=== PATIENT | female | born 1975 | race Caucasian/White ===

== ENCOUNTER 2019-07-27 09:51 | Inpatient (IN) | payer OTHER ==
[~2019-07-27] VITALS: Ht 162.6 cm; Wt 111.1 kg
[2019-07-27 10:39] VITALS: BP 194/104
[2019-07-27] MEDS ORDERED: SYMBICORT160 MCG/4. INH (10:51)
[2019-07-27] MEDS ORDERED: PROAIR HFA8.5 GM INH (10:51)
[2019-07-27 11:25] LABS: ABSOLUTE NEUTROPHILS 8.5 thou/uL (1.4-8.2); BASOPHILS 1.1 % (0.0-2.0); EOSINOPHILS 0.6 % (0.0-3.0); HEMATOCRIT 38.4 % (37.0-47.0); HEMOGLOBIN 12.7 gm/dL (12.0-15.0); LYMPHOCYTES 23.1 % (24.0-44.0); MCH 28.8 pg (26.0-34.0); MCHC 33.1 g/dL (28.0-37.0); MCV 87.2 fL (80.0-100.0); MONOCYTES 4.5 % (1.0-8.0); PLATELET COUNT 498 thou/uL (150-400); POLYS 70.7 % (36.0-66.0); RBC 4.41 mil/uL (4.20-5.00)
[2019-07-27 11:36] LABS: CREATININE 0.8 mg/dL (0.6-1.0); MAGNESIUM 1.8 mg/dL (1.8-2.4); POTASSIUM 3.7 mmol/L (3.5-5.1); PROTIME 9.8 Seconds (9.3-11.4)
--- NOTE | 2019-07-27 16:17 | EKG ---
[facility] [place] [address] ELECTROCARDIOGRAM REPORT Name: JOHNNA WOOD Room #: 170-10 ADM IN M.R.#: [id number] Admission: 07/27/19 Attend Phys: Rafael Clark MD Discharge: Date of : 77 Report #: [id number] THIS REPORT FOR: cc: Sheron Castaneda MD, Melanie MD Couchonnal,Espinoza Taveras MD ~ THIS REPORT FOR: //name// [facility] ED Test Date: 2019-07-27 Test Time: 10:01:52 Pat Name: JOHNNA WOOD Department: Room: [facility] Gender: F Safety Tech: SULLY : 1975 Requested By: Rita Vanegas Order Number: [id number] MD: Espinoza Wheeler Measurements Intervals [place] Rate: 96 P: 40 MD: 144 QRS: -4 QRSD: 91 T: 66 QT: 359 QTc: 454 Interpretive Statements Sinus rhythm Probable left atrial enlargement Abnormal R-wave progression, early transition No previous ECG available for comparison Electronically Signed On 07-27-2019 16:16:28 BAG BLEACHER by Espinoza Wheeler [email or web address] <ELECTRONICALLY SIGNED> By: Espinoza Wheeler MD 07/27/19 1616 100 1001 Espinoza Wheeler MD /EPI
[2019-07-27 16:43] VITALS: BP 171/84
[2019-07-27 17:05] VITALS: BP 138/73
[2019-07-27 17:50] VITALS: BP 141/85
--- NOTE | 2019-07-27 18:33 | NUR ---
Pt admitted to 354, pt alert and oriented X4, complains of right rib pain with any activity. rates pain 8/10, sharp, stabbing. pt oriented to room, fall consent signed. Assessment and admission completed.Pt has her purse with her, educated on giving Call light in reach, bed at lowest level with alarm on.
[2019-07-27 19:30] VITALS: BP 167/100
[2019-07-28 04:10] VITALS: BP 116/72
[2019-07-28 05:04] LABS: ABSOLUTE NEUTROPHILS 10.4 thou/uL (1.4-8.2); BASOPHILS 0.2 % (0.0-2.0); HEMATOCRIT 35.9 % (37.0-47.0); HEMOGLOBIN 11.6 gm/dL (12.0-15.0); LYMPHOCYTES 10.3 % (24.0-44.0); MCH 28.4 pg (26.0-34.0); MCHC 32.2 g/dL (28.0-37.0); MCV 88.2 fL (80.0-100.0); PLATELET COUNT 463 thou/uL (150-400); POLYS 88.5 % (36.0-66.0); RBC 4.07 mil/uL (4.20-5.00); RDW 14.3 % (10.5-14.5); WBC 11.7 thou/uL (4.0-11.0)
[2019-07-28 05:34] LABS: CALCIUM 8.4 mg/dL (8.5-10.1); CREATININE 0.9 mg/dL (0.6-1.0); POTASSIUM 4.1 mmol/L (3.5-5.1)
[2019-07-28 07:53] VITALS: BP 136/91
--- NOTE | 2019-07-28 07:56 | NUR ---
PT MAKING SLOW PROGRESS TOWARDS GOALS. X3 DOSES OF MORPHINE GIVEN FOR RIGHT UPPER CHEST PAIN. X2 DOSES GIVEN FOR PT REPORTS OF NAUSEA WITH ELEVATED PAIN LEVEL AND MORPHINE DOSING. PT REPORTING MODERATE RELIEF WITH MORPHINE. SEE CHARTING.
[2019-07-28 15:25] VITALS: BP 143/95
--- NOTE | 2019-07-28 15:35 | NUR ---
ASSUMED CARE OF PT AT 0700. PT AOX4 TEARFUL AT TIMES DUE TO PAIN. SCHEDULED HYDROCODONE ADDED TO MORPHINE PRN. NOW COMPLAINING OF RIGHT UPPER BACK PAIN - PHYSICIAN AWARE. WILL CONT TO MONITOR.
--- NOTE | 2019-07-28 15:42 | NUR ---
met with patient who admits with PNA. She is independent with adls and self care. 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 She lives in one level home, has insurance and PCP. Patient anticipates no needs from casemgt at in. cont to follow
[2019-07-28 19:24] VITALS: BP 134/87
[2019-07-29 05:20] VITALS: BP 127/79
[2019-07-29 07:31] VITALS: BP 152/97
--- NOTE | 2019-07-29 09:03 | NUR ---
PT MAKING SLOW PROGRESS TOWARDS GOALS. RATING PAIN IN HER RIGHT UPPER CHEST 7-9/10 THROUGHOUT THE NIGHT. X3 DOSES OF IV MORPHINE AND ORAL LORTAB PER ORDERS. SEE CHARTING.
--- NOTE | 2019-07-29 14:14 | NUR ---
CHART REVIEWED. SPOKE TO Pt AND HER NURSE WHO STATE THAT Pt IS GETTING AROUND WELL AND DOES NOT NEED ANY P.T. PRIOR TO D/C. INFORMED BOTH TO CONTACT P.T. IF ANYTHING CHANGES AND P.T. IS NEEDED DURING THIS STAY.
[2019-07-29 15:13] VITALS: BP 134/83
--- NOTE | 2019-07-29 16:15 | NUR ---
Assumed care approx. 0700 this AM. New 20 guage IV was placed by IV team this AM. Pt taken for CT scan this morning. Pain hasn't been well controlled-still complains of non-cardiac pain in the upper right chest region. Non-productive cough present. IV abx infusing per orders. No acute changes noted. Pts kids at bedside to visit. Will continue to monitor. Pt hasn't progressed much yet toward plan of care goals as pain is uncontrolled.
[2019-07-29 19:17] VITALS: BP 119/72
[2019-07-30 07:36] VITALS: BP 149/89
[2019-07-30] MEDS ORDERED: NORCO 5-325 TA1 EAC1 PO (11:23)
[2019-07-30] MEDS ORDERED: LIDOPATCH1 EACH TRANSDERM (11:23)
[2019-07-30] MEDS ORDERED: PREDNISONE 20 M20 M1 PO (11:23)
[2019-07-30] MEDS ORDERED: CEFUROXIME500 MG PO (11:23)
[2019-07-30] MEDS ORDERED: ALPRAZOLAM 0.50.5 M1 PO (11:23)
[2019-07-30] MEDS ORDERED: ZITHROMAX500 MG PO (11:23)
[2019-07-30] MEDS ORDERED: CYMBALTA30 MG PO (11:23)
[2019-07-30 11:40] VITALS: BP 149/89
== END 2019-07-30 13:52 | disposition home or self-care (01) | DRG 205 ==
LOC: ER 09:51 → 3W 14:37 → EROBS 14:37 → 3W 17:18
PROVIDERS: Emergency Medicine Emergency Medical Services; Nurse Practitioner; ADMIT Internal Medicine
DX: S22.31XA Fracture of one rib, right side, initial encounter for closed fracture (principal); J18.9 Pneumonia, unspecified organism; J45.901 Unspecified asthma with (acute) exacerbation; J98.11 Atelectasis; S27.321A Contusion of lung, unilateral, initial encounter; Z68.41 Body mass index [BMI] 40.0-44.9, adult; Z68.42 Body mass index [BMI] 45.0-49.9, adult; I16.0 Hypertensive urgency; F17.210 Nicotine dependence, cigarettes, uncomplicated; E66.01 Morbid (severe) obesity due to excess calories; F41.1 Generalized anxiety disorder; F32.9 Major depressive disorder, single episode, unspecified; X58.XXXA Exposure to other specified factors, initial encounter; Z79.899 Other long term (current) drug therapy; Z79.51 Long term (current) use of inhaled steroids; Z87.440 Personal history of urinary (tract) infections; Y93.89 Activity, other specified; Y92.89 Other specified places as the place of occurrence of the external cause; Y99.8 Other external cause status
CPT/HCPCS: 10879

== ENCOUNTER 2019-08-07 15:51 | Emergency (ER) | payer OTHER ==
[~2019-08-07] VITALS: Ht 162.6 cm; Wt 108.9 kg
[~2019-08-07 15:51] MED LIST: ALPRAZOLAM 0.50.5 M1 PO; CEFUROXIME500 MG PO; CYMBALTA30 MG PO; LIDOPATCH1 EACH TRANSDERM; NORCO 5-325 TA1 EAC1 PO; PREDNISONE 20 M20 M1 PO; PROAIR HFA8.5 GM INH; SYMBICORT160 MCG/4. INH; ZITHROMAX500 MG PO
[2019-08-07] MEDS ORDERED: PERCOCET 5-3251 EACH PO ×2 (16:17→19:40)
[2019-08-07] MEDS ORDERED: ATIVAN0.5 M1 PO (16:18)
[2019-08-07 17:18] LABS: HEMATOCRIT 34.4 % (37.0-47.0); HEMOGLOBIN 11.1 gm/dL (12.0-15.0); MCH 28.2 pg (26.0-34.0); MCHC 32.1 g/dL (28.0-37.0); MCV 87.8 fL (80.0-100.0); PLATELET COUNT 523 thou/uL (150-400); RBC 3.92 mil/uL (4.20-5.00); RDW 14.2 % (10.5-14.5); WBC 18.1 thou/uL (4.0-11.0)
[2019-08-07 17:25] LABS: CALCIUM 8.8 mg/dL (8.5-10.1); CREATININE 0.7 mg/dL (0.6-1.0); POTASSIUM 4.6 mmol/L (3.5-5.1)
[2019-08-07 18:10] LABS: ALBUMIN 3.1 g/dL (3.4-5.0); SGOT 21 U/L (15-37); SGPT 47 U/L (30-65); TOTAL BILIRUBIN < 0.1 mg/dL (<0.1-1.0); TOTAL PROTEIN 6.8 g/dL (6.4-8.2)
[2019-08-07 18:12] LABS: DIRECT BILIRUBIN < 0.1 mg/dL (<0.1-0.2)
[2019-08-07 18:44] LABS: ABSOLUTE NEUTROPHILS 13.6 thou/uL (1.4-8.2); ANISOCYTOSIS 1+
[2019-08-07 19:38] VITALS: BP 142/79
[2019-08-07] MEDS ORDERED: SENNA-DOCUSATE1 EAC1 PO (19:40)
== END 2019-08-07 19:54 | disposition home or self-care (01) ==
LOC: ER 15:51
PROVIDERS: Nurse Practitioner Family
DX: S29.011A Strain of muscle and tendon of front wall of thorax, initial encounter (principal); J45.909 Unspecified asthma, uncomplicated; F41.9 Anxiety disorder, unspecified; Z90.49 Acquired absence of other specified parts of digestive tract; X58.XXXA Exposure to other specified factors, initial encounter; Y93.89 Activity, other specified; Y92.89 Other specified places as the place of occurrence of the external cause; Y99.8 Other external cause status

== ENCOUNTER → 2019-08-23 | Outpatient (CLI) | payer OTHER ==
[~2019-08-23] VITALS: Ht 162.6 cm; Wt 114.8 kg
[~2019-08-23] MED LIST changes: +ATIVAN0.5 M1 PO; +CLONAZEPAM 0.50.5 M1 PO; +PERCOCET 5-3251 EACH PO; +SENNA-DOCUSATE1 EAC1 PO
[2019-08-23 12:55] VITALS: BP 148/94
--- NOTE | 2019-08-23 13:05 | NUR ---
Pain Clinic Assessment: 1. History of Osteoarthritis: NONE History of Rheumatoid Arthritis: COMMON VARIABLE IMUNE DEFICIENCY 2. Height: 5 ft. 4 in. 162.6 cm. Weight: 253.0 lb. oz. 114.760 kg. Patient's BMI: 43.4 3. Vital Signs: BP: 148/94 Pulse: 102 Resp: 20 Temp: 02 Sat: 98 ECG Mon: 4. Pain Intensity: 10 5. Fall Risk: Dizziness: N Needs help standing or walking: N Fallen in the last 3 months: N Fall risk comments: 6. Patient on Blood Thinner: None 7. History of Hypertension: N 8. Opioid Therapy greater than 6 weeks: Y Opiate Contract Signed: 9. Risk Assessment Tool Provided: LOW 10. Functional Assessment Tool: 68/70 11. Recreational Drug Use: Never Drug Type: Tobacco Use: Current Some Day Smoker Tobacco Type: Cigarettes Amount or Packs/day: How Many Years: Alcohol Use: No Frequency: Quant:
--- NOTE | 2019-08-29 08:15 | HPC ---
[facility] [place] [address] PAIN MANAGEMENT CONSULTATION Name: JOHNNA WOOD Room #: REG [facility] River#: [id number] Admission: 08/23/19 Attend Phys: Jae Sapp DO Discharge: Date of : 77 Report #: [id number] THIS REPORT FOR: cc: Sheron Castaneda MD, Melanie MD Johnson, James E. DO ~ DATE OF SERVICE: 08/23/2019 CHIEF COMPLAINT: Right upper rib pain. HISTORY OF PRESENT ILLNESS: As you know, the patient is a 44-year-old female who reports acute onset of right upper rib pain that began after a cough 07/23/2019. She was seen after this as she did not seem to improve. It was found she had suffered a mildly displaced T2 rib fracture. She apparently was having such discomfort from this issue. She was seen in the hospital and treated medically. She was discharged home after the hospital stay where she had received a fairly significant amount of opioid medication for pain control. She was at home for about a day or two and began to experience some lower abdominal pain located on the right side. The pain became so intense that she took herself back to the Emergency Department on this previous Wednesday where she was evaluated. Ultrasound of the abdomen showed no acute findings. She was subsequently discharged home with further pain medication. The patient reports her pain has become so intense that she was referred to our clinic to discuss options for treatment. She is placing pain score 10/10. She denies any specific injury or trauma that may have led to recurrence of pain. The patient indicates today pain is continuous. She describes the pain as stabbing. She places pain score 10/10, daily average at 10/10, worst pain has been is 10/10. The patient states that moving, breathing, walking, trying to do anything exacerbates symptoms, nothing has improved her pain. She has been referred to our service to discuss treatment options. PAST MEDICAL HISTORY: 1. Asthma. 2. Severe vitamin deficiency. 3. History of shingles. 4. Chronic kidney disease. 5. Hypercalcemia. 6. Renal insufficiency. 7. Dyspnea. 8. COPD. 9. Class 2 morbid obesity. SOCIAL HISTORY: The patient continues to smoke 1 pack of tobacco per week. She [facility] [address] [place] [address] PAIN MANAGEMENT CONSULTATION Name: JOHNNA WOOD Room #: REG [facility]#: [id number] Admission: 08/23/19 Attend Phys: Jae Sapp DO Discharge: Date of : 77 Report #: [id number] denies IV or illicit drug use. Denies any chronic alcohol use. 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 She is not receiving workmen's compensation nor is she trying to obtain disability benefits. She is not involved in any litigation. REVIEW OF SYSTEMS: Positive for weight gain, fever, night sweats, fatigue and weakness, wearing corrective eyewear, hearing loss with tinnitus, nosebleeds, shortness of breath walking or lying flat, spitting up blood, asthma, wheezing, loss of appetite, changes in bowel movements, nausea, vomiting, frequent diarrhea interspersed with severe constipation, abdominal pain, nocturia, changes in hair and nail texture, rash and itching, insomnia, excessive thirst, urination, spontaneity to right rib fracture status post cough. All other review of systems negative per 12-point review of systems other than those listed in history of present illness. Pain impact score 68 to 70 indicating complete interference of daily activities secondary to pain. ALLERGIES: No reported drug allergies. CURRENT MEDICATIONS: Clonazepam 0.5 mg 3 times a day, Percocet 5/325 two tabs every 4 hours p.r.n. pain, Lidoderm patch apply topically up to 12 hours of time, albuterol 2 puffs q. 4 hours p.r.n., Symbicort 160/4.5 mcg inhaled twice a day. IMAGING: The CT chest without contrast obtained 08/07/2019 shows a healing mildly displaced right anterior second rib fracture. There is resolving contusion/atelectasis within the upper lobes of the lung. Also noted a fatty liver. A complete abdominal ultrasound obtained on 08/07/2019 shows enlarged fatty liver without acute process. PHYSICAL EXAMINATION: VITAL SIGNS: Blood pressure 140/94, pulse 102, respiratory rate 20 and unlabored. The patient is 98% on room air. Height 5 feet 4 inches tall, weight 253 pounds, BMI calculated 43.4. GENERAL: Well-developed, well-nourished, well-hydrated, class 3, morbidly obese 44-year-old female appearing stated age. She is in moderate to severe distress, placing current pain score at 10/10. HEENT: Normocephalic, atraumatic. Pupils equal, round and reactive. Extraocular muscles are intact. Sclerae nonicteric without injection. NEUROLOGIC: Cranial nerves 2-12 grossly intact. Speech is pressured. The patient is deemed a fair historian. LUNGS: Decreased breath sounds on the right, normal left. There does appear to be some splinting with breathing. There does not appear to be any wheezing or [address] [address] PAIN MANAGEMENT CONSULTATION Name: JOHNNA WOOD Room #: REG [facility] [place]#: [id number] Admission: 08/23/19 Attend Phys: Jae Sapp DO Discharge: Date of : 77 Report #: [id number] rhonchi. CARDIOVASCULAR: Mildly tachycardic. No appreciable gallop, no rub. ABDOMEN: There are absent bowel sounds. There is exquisite tenderness to palpation over the right upper quadrant. EXTREMITIES: Show no clubbing, no cyanosis, 1+ nonpitting lower extremity edema. MUSCULOSKELETAL: There is a significant palpatory tenderness on the right upper quadrant area and along the right chest wall. There is no palpatory tenderness in the upper chest overlying the previously known fracture. ASSESSMENT: 1. Right upper quadrant abdominal pain. 2. Right chest wall pain. 3. Possible right lower rib fracture. 4. Possible small-bowel obstruction. PLAN: 1. Based on today's physical exam and history the patient provides, the distribution of symptoms, the patient is experiencing pain upon and the acute onset of symptoms, I am concerned of 2 different etiologies. The first is a bowel obstruction. The patient reports that her pain was centered over the right rib consistent with the findings of the CT examination. She was hospitalized for multiple days receiving high dose opioid medication via IV and oral route. She reports minimal bowel movements during that stay. She states also that she was having significantly hard stools to the point where she was unable to pass the stool and then when the pain began to intensify, she was having what she classified as diarrhea that has not stopped. She reports nausea with this condition. Her symptoms tend to be peristaltic in their presentation as she is having "bouts of pain" that occurred and then subside to some degree. I have a strong suspicion of possible bowel obstruction secondary to opioid medication and lack of activities. A second potential diagnosis is a spontaneous rib fracture. Apparently, the patient has some underlying lung disease, which has yet to be fully evaluated. She did have a spontaneous T2 fracture after a coughing spell in early July, so I do have a high suspicion of a fracture may have occurred in the lower area, though this is lower on my differential. I have taken the liberty of contacting the patient's primary care physician as she was referred to our clinic for a T2 rib fracture, which would be recommended treated only conservatively, minimize the use of opioid medication and utilizing nonsteroidal anti-inflammatories and practice good incentive spirometry treatment. The findings of the physical exam today do not correlate with this fracture. We contacted the patient's PCP and advised that we were recommending a transfer to the Emergency Department for further evaluation. The patient's primary care physician was made aware. 2. We will send the patient for an acute rib series on the right. I wish to rule out the potential of spontaneous rib fracture if possible. I will send the patient for this x-ray imaging immediately. We will review those findings once [address] [address] PAIN MANAGEMENT CONSULTATION Name: JOHNNA WOOD SARITA Room #: REG CL [facility]#: [id number] Admission: 08/23/19 Attend Phys: Jae Sapp DO Discharge: Date of : 77 Report #: [id number] they are available. We did receive a preliminary imaging right within about 20 minutes of the patient leaving our clinic. I reviewed them. I do not see any displaced rib fractures nor do I see any concerning pathology from a fracture standpoint on the rib imaging. This does not fully rule out any spontaneous fracture as greenstick fractures can be slow to be seen on imaging, though this certainly does reduce the potential for that to be the source of the patient's symptoms. 3. We have recommended the patient at this time that she follow up with the Emergency Department as I am concerned about a bowel obstruction, given her history, the fact that she is somewhat nauseated with the problem and the symptoms tend to come in more of a wave pattern very similar peristalsis and the lack of any audible bowel sounds based on auscultation today. The patient will seek treatment through the Emergency Department. 3. We have made no medication changes for the patient today. I do not feel that any treatment we can offer orally will provide any improvement in the patient's symptoms at present. Further workup through the Emergency Department is necessary. 4. We wish to thank Dr. Castaneda for the opportunity to see this patient in consultation. I am hopeful that she does well and her pain etiology is found quickly and is resolved. Again, we wish to thank you for the opportunity to see this patient in consultation. We will be returning her care to your capable services. I have requested the patient contact us to advise us of the plan treatment and what is believed to be the etiology of her symptoms. <ELECTRONICALLY SIGNED> By: Jae Sapp DO 08/29/19 0815 [id number] Jae Sapp DO /nt
== END ==
LOC: RAD 06:43 → PAIN 06:43
DX: R07.81 Pleurodynia (principal); R07.89 Other chest pain; R10.11 Right upper quadrant pain; J45.909 Unspecified asthma, uncomplicated; E55.9 Vitamin D deficiency, unspecified; Z79.899 Other long term (current) drug therapy

== ENCOUNTER → 2020-02-08 | Outpatient (CLI) | payer OTHER | LOC: RAD 12:57 | PROVIDERS: ATTEND Internal Medicine | DX: R06.00 Dyspnea, unspecified (principal) ==